=== PATIENT | female | born 1950 | race Caucasian/White ===

== ENCOUNTER → 2025-02-09 10:25 | Outpatient (CLI) | payer MEDICARE, OTHER, SELFPAY ==
--- NOTE | 2025-02-09 10:32 | DI.RAD.S_ITS ---
PROCEDURE: XR CHEST 2V INDICATIONS: CHEST TECHNIQUE: 2 views of the chest were acquired. COMPARISON: None. FINDINGS: Surgical changes and devices: None. Lungs and pleura: Lungs are clear. No pleural effusions or pneumothorax. Mediastinum: Mediastinal contours are normal. Heart size is normal. Bones and chest wall: No suspicious bony abnormalities. Soft tissues appear unremarkable. IMPRESSION: No acute cardiopulmonary abnormality is seen. Dictated by: Price Barry M.D. on 02/10/2025 at 3:39 Approved by: Price Barry M.D. on 02/10/2025 at 3:39
--- NOTE | 2025-02-16 11:26 | DI.NM.S_ITS ---
DATE OF SERVICE: 02/09/2025 EXERCISE TREADMILL STRESS TEST PROCEDURE: Exercise treadmill stress test without imaging. ORDERING PROVIDER: Esvin Corbin MD. INDICATIONS: The patient is a 74-year-old female with atypical chest pressure and exertional dyspnea. FINDINGS: 1. The patient was able to exercise for 8 minutes 3 seconds on a standard Kanu protocol suggesting excellent exercise capacity with an FRANCISCO of -44%, achieving 10.1 METs. 2. She had a normal heart rate and blood pressure response to exercise, achieving a maximum heart rate of 161 bpm (110% of her predicted maximum). 3. She had no chest discomfort or other anginal symptoms. 4. Her resting ECG shows sinus rhythm with mild inferolateral ST- segment abnormalities that become accentuated with stress with up to 1.5 to 2.[address] depression. There are occasional PACs with stress, persisting into recovery, briefly in a bigeminal pattern. The ST-segment abnormalities nearly resolve back to baseline by 2 minutes of recovery, although remain mildly abnormal. IMPRESSION: 1. Abnormal exercise treadmill stress test for ischemia but low risk and with reduced specificity because of baseline ECG abnormalities. If there is a high degree of clinical concern for ischemic heart disease, consider a stress imaging study. 2. Excellent exercise capacity without angina. She had occasional PACs with stress that persist into recovery, at times in a bigeminal pattern, but no complex arrhythmias. Kelley Reyes - DANIELLE/jeana/IN doc#: [id number]/job#: [id number] dd: 02/09/2025 17:25:00 dt: 02/09/2025 17:43:00 DICTATING MD/COPIES TO: Saad Boyd MD; Esvin Corbin MD COPIES MNE: BJ;
== END ==
PROVIDERS: Family Provider Nurse Practitioner; PCP Family Medicine; Referring Provider Internal Medicine Cardiovascular Disease; Visit Provider Internal Medicine Cardiovascular Disease
DX: R07.9 Chest pain, unspecified (principal)
CPT/HCPCS: 71046; 93017

== ENCOUNTER → 2025-06-10 09:48 | Outpatient (CLI) | payer MEDICARE, OTHER, SELFPAY ==
--- NOTE | 2025-06-10 09:50 | DI.NM.S_ITS ---
PROCEDURE: NM REEMA PERF SPECT REST & STR Rest and exercise myocardial perfusion SPECT with gated imaging and ejection fraction RADIOPHARMACEUTICAL: 12.2 mCi Tc-99m sestamibi IV at rest and 26.0 mCi Tc-99m sestamibi IV at peak exercise. A 1 day-protocol was performed. INDICATIONS: Chest pain TECHNIQUE: Radiopharmaceutical was injected at peak stress test, and also at rest. SPECT images were obtained. SPECT myocardial perfusion images were displayed in short axis, horizontal long axis, and vertical long axis views. Gated images were reviewed using Stroodle software. COMPARISON: None. CARDIAC STRESS: A standard Kanu treadmill exercise tolerance test was performed by the patient under the supervision of an attending staff. The patient exercised for 6 minutes and 10 seconds; 8.0 METS; functional aerobic impairment (FRANCISCO) is -35%. Hemodynamic data: There is normal blood pressure and heart rate response to exercise stress. Patient achieved 97% of maximum predicted heart rate at peak exercise. Peak blood pressure 178/80. Symptoms: Patient denied chest pain during exercise. EKG: Exercise ECG sinus tachycardia, 1.0 to [address] segment depressions leads II, III, aVF, V3-V6. FINDINGS: Raw data: There is good myocardial labeling by radiotracer. No significant motion artifacts. Left ventricle function: Gated images demonstrate normal left ventricle wall thickening. No segmental wall motion abnormality. No transient ischemic dilation; TID is 1.13 (normal less than 1.3). The left ventricle resting end-diastolic volume is 71 mL. Left ventricle stress ejection fraction is 69%; normal values are above 45%. Myocardial perfusion: There is normal distribution of activity in the left and right ventricular myocardium. No fixed or reversible perfusion defects. IMPRESSION: Low risk study. No evidence of exercise-induced ischemia on SPECT imaging. Normal LV size and function. False positive exercise ECG. Normal hemodynamic response. Very good exercise capacity. Dictated by: Jennifer Velasquez D.O. on 06/10/2025 at 16:18 Approved by: Jennifer Velasquez D.O. on 06/10/2025 at 16:22
== END ==
LOC: NUCM 09:50
PROVIDERS: Family Provider Nurse Practitioner; Referring Provider Internal Medicine Cardiovascular Disease; Visit Provider Internal Medicine Cardiovascular Disease
DX: R07.9 Chest pain, unspecified (principal); R94.39 Abnormal result of other cardiovascular function study
CPT/HCPCS: 78452; 93017; A9502